=== PATIENT | female | born 1995 | race American Indian/Alaskan Native ===

== ENCOUNTER 2016-04-09 13:16 | Outpatient (CLI) | payer MEDICAID ==
[2016-04-09] MEDS ORDERED: LACTATED RINGERS 500 ML IV ONE (13:45)
== END 2016-04-09 16:17 | disposition home or self-care (01) ==
LOC: TRG 13:16
PROVIDERS: ATTEND Obstetrics & Gynecology
DX: O77.9 Labor and delivery complicated by fetal stress, unspecified (principal); O47.9 False labor, unspecified; Z3A.00 Weeks of gestation of pregnancy not specified

== ENCOUNTER 2016-04-14 18:58 | Outpatient (CLI) | payer MEDICAID ==
[2016-04-14 15:40] LABS: Urine Drugs of Abuse Note Disclamer
[2016-04-14 15:52] LABS: Bilirubin,Urine NEG (Negative); Blood,Urine NEG (Negative); Ketones,Urine NEG (Negative); Leukocyte Esterase,Urine NEG (Negative); Mucus,Urine FEW /HPF; Nitrite,Urine NEG (Negative); Protein,Urine <15 mg/dL mg/dL (Negative); Urobilinogen,Urine < 2.0 mg/dL (<2.0); WBC,Urine < 1.0 /HPF (0.0-6.0)
[~2016-04-14 18:58] MED LIST: BRETHINE SUB-Q ONE; LACTATED RINGERS 500 ML IV ONE
[2016-04-14 19:20] VITALS: BP 91/50
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
== END 2016-04-14 19:35 | disposition home or self-care (01) ==
LOC: TRG 18:58
PROVIDERS: ATTEND Obstetrics & Gynecology
DX: O26.899 Other specified pregnancy related conditions, unspecified trimester (principal); O77.9 Labor and delivery complicated by fetal stress, unspecified; S39.91XD Unspecified injury of abdomen, subsequent encounter; R10.9 Unspecified abdominal pain; O47.9 False labor, unspecified; X58.XXXD Exposure to other specified factors, subsequent encounter; Z3A.00 Weeks of gestation of pregnancy not specified
CPT/HCPCS: 59025; 76815; 80307; 81001; 96360; 96372; J7120

== ENCOUNTER 2020-05-26 00:46 | Emergency (ER) | payer MEDICAID, OTHER ==
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
[2020-05-26 02:28] VITALS: BP 114/78
== END 2020-05-26 02:30 ==
LOC: ED 00:46 → EEVIPCON 00:46 → ED 02:30
DX: T74.21XA Adult sexual abuse, confirmed, initial encounter (principal); N89.8 Other specified noninflammatory disorders of vagina; Y07.9 Unspecified perpetrator of maltreatment and neglect